=== PATIENT | male | born 1970 | race Caucasian/White ===

== ENCOUNTER 2020-09-04 15:14 | Outpatient (CLI) | payer OTHER ==
[~2020-09-04] VITALS: Ht 182.9 cm; Wt 104.3 kg
[2020-09-04] MEDS ORDERED: albuterol 2.5 MG/3 ML nebule NEB ONE (16:45)
== END 2020-09-04 23:59 | disposition home or self-care (01) ==
LOC: RT 15:14
PROVIDERS: ATTEND Orthopaedic Surgery
DX: J44.9 Chronic obstructive pulmonary disease, unspecified (principal); R06.02 Shortness of breath; R07.9 Chest pain, unspecified
CPT/HCPCS: 71046; 94060; 94760